=== PATIENT | male | born 1960 | race Two or more races ===

== ENCOUNTER 2020-04-22 11:00 | Inpatient (IN) | payer OTHER ==
[~2020-04-22] VITALS: Ht 182.9 cm; Wt 111.1 kg
[2020-06-23] MEDS ORDERED: ALBUTEROL SULF8.5 G1 INH (15:01)
[2020-06-23] MEDS ORDERED: BREO ELLIPTA 11 EACH IH (15:01)
[2020-06-24] VITALS (23 sets, daily range): BP systolic 118–150; BP diastolic 62–104
[2020-06-24] MEDS ORDERED: OXYCODONE IR15 MG ORAL (06:00)
[2020-06-24] MEDS ORDERED: LR 1000ml 1,000 ML IVLG SCH (06:35)
[2020-06-24] MEDS ORDERED: Thrombin 5000 units TOPIC ONE (06:38)
[2020-06-24] MEDS ORDERED: Gelfoam Size TOPIC ONE (06:38)
[2020-06-24] MEDS ORDERED: Heparin 5000 units/ml inj ONE (06:38)
[2020-06-24] MEDS ORDERED: Bupivacaine w/Epi 0.5% 30ml Vial INJ ONE (06:39)
[2020-06-24] MEDS ORDERED: Bacitracin 50000 Units Vial ONE (06:39)
[2020-06-24] MEDS ORDERED: Lidocaine 1% Plain 30 ml INJ ONE ×3 (06:39→08:30)
[2020-06-24] MEDS ORDERED: Ropivacaine 5mg/ml Vial 20ml INJ ONE (06:39)
--- NOTE | 2020-06-24 06:41 | Anethesia Preoperative Eval ---
Anesthesia Pre-op PMH/ROS General Date of Evaluation: Jun 24, 2020 Time of Evaluation: 07:06 Anesthesiologist: Murphy ASA Score: ASA 3 Mallampati Score Class I : Soft palate, uvula, fauces, pillars visible Class II: Soft palate, uvula, fauces visible Class III: Soft palate, base of uvula visible Class IV: Only hard plate visible Mallampati Classification: Class II Surgeon: Angeles Diagnosis: Back Pain Surgical Procedure: ALIF L5-S1 Anesthesia History: none Family History: no anesthesia problems Allergies: Coded Allergies: No Known Allergies (Unverified , 06/24/20) Medications: see eMAR Patient NPO?: Yes Past Medical History Cardiovascular: Reports: HTN Pulmonary: Reports: asthma, other - Pneumonia Gastrointestinal/Genitourinary: Reports: other - BPH Neurologic/Psychiatric: Reports: depression/anxiety PSxH Narrative: B Hand Sx, IHR, UHR Anesthesia Pre-op Phys. Exam Physician Exam Last Vital Signs Date Time Temp Pulse Resp B/P (MAP) Pulse Ox O2 Delivery O2 Flow Rate FiO2 06/24/20 06:01 Room Air 06/24/20 06:00 98.6 65 20 137/89 (105) 98 Constitutional: NAD Neurologic: CN 2-12 intact Cardiovascular: RRR Respiratory: CTA Gastrointestinal: S/NT/ND Airway Exam Mallampati Score: Class II MO: full ROM: limited Teeth: missing, intact Anesthesia Pre-op A/P Risk Assessment & Plan Assessment: ASA 3 Plan: GA, SED, GlideScope Status Change Before Surgery: No Pre-Antibiotics Dru Grams Ancef IV Given Within 1 Hr of Incision: Yes Time Given: 07:31 Rickie Arrington MD Jun 24, 2020 06:41
--- NOTE | 2020-06-24 06:42 | Immediate Post-Op Evaluation ---
Immediate Post-Op Evalulation Immediate Post-Op Evalulation Procedure: ALIF L5-S1 Date of Evaluation: Jun 24, 2020 Time of Evaluation: 09:47 IV Fluids: 300 LR Blood Products: 0 Estimated Blood Loss: 50 Urinary Output: 0 Blood Pressure Systolic: 122 Blood Pressure Diastolic: 61 Pulse Rate: 52 Respiratory Rate: 18 O2 Sat by Pulse Oximetry: 100 Temperature (Fahrenheit): 97.6 Pain Score (1-10): 2 Nausea: No Vomiting: No Complications 0 Patient Status: awake, reacts, patent, extubated, none Hydration Status: adequate Dru Grams Ancef IV Given Within 1 Hr of Incision: Yes Time Given: 07:31 Rickie Arrington MD Jun 24, 2020 06:42
--- NOTE | 2020-06-24 06:43 | 48 Hour Post Anesthesia Eval ---
Post Anesthesia Evaluation Procedure: ALIF L5-S1 Date of Evaluation: Jun 24, 2020 Time of Evaluation: 12:32 Blood Pressure Systolic: 143 0: 89 Pulse Rate: 62 Respiratory Rate: 18 Temperature (Fahrenheit): 98 O2 Sat by Pulse Oximetry: 100 Airway: patent Nausea: No Vomiting: No Pain Intensity: 2 Hydration Status: adequate Cardiopulmonary Status: Stable Mental Status/LOC: patient returned to baseline Follow-up Care/Observations: 00 Post-Anesthesia Complications: 0 Follow-up care needed: N/A Rickie Arrington MD Jun 24, 2020 06:43
[2020-06-24] MEDS ORDERED: Midazolam 2mg/2ml Inj IVP PRN (06:45)
[2020-06-24] MEDS ORDERED: Acetaminophen (Non formulary) 100 ML IV ONE (06:45)
[2020-06-24] MEDS ORDERED: Ketorolac 30mg Inj IV PRN ×2 (06:45)
[2020-06-24] MEDS ORDERED: oxyCODONE HCL/Acetaminophen 5/325mg ORAL PRN (06:45)
[2020-06-24] MEDS ORDERED: LORazepam Inj 2mg/ml 1ml IV PRN (06:45)
[2020-06-24] MEDS ORDERED: Metoclopramide 10mg/2ml Inj IVP PRN (06:45)
[2020-06-24] MEDS ORDERED: HYDROcodone/Acetamin 7.5/325 tab ORAL PRN (06:45)
[2020-06-24] MEDS ORDERED: Hydromorphone 0.5mg/0.5ml inj IVP PRN ×2 (06:45→12:45)
[2020-06-24] MEDS ORDERED: DiphenhydrAMINE 50mg/ml Inj IVP PRN (06:45)
[2020-06-24] MEDS ORDERED: fentaNYL 100 mcg/2 mL IV PRN (06:45)
[2020-06-24] MEDS ORDERED: Meperidine 25mg/0.5ml Inj (FOR RIGORS ONLY) IV PRN (06:45)
[2020-06-24] MEDS ORDERED: Labetalol 5mg/ml 20ml vial IV PRN (06:45)
[2020-06-24] MEDS ORDERED: HYDROcodone/Acetamin 5/325 tab ORAL PRN (06:45)
[2020-06-24] MEDS ORDERED: Atropine Sulfate 0.4mg/ml inj IVP PRN (06:45)
[2020-06-24] MEDS ORDERED: Rocuronium Bromide 50mg/5ml Inj IV ONE (06:47)
[2020-06-24] MEDS ORDERED: dexAMETHasone 10mg/ml Inj IV ONE (07:00)
[2020-06-24] MEDS ORDERED: Glycopyrrolate 0.2mg/ml 1ml Vial ONE (07:00)
[2020-06-24] MEDS ORDERED: NS Irrig 1000ml ONE (07:00)
[2020-06-24] MEDS ORDERED: Neostigmine 1mg/ml 10ml Inj ONE (07:00)
[2020-06-24] MEDS ORDERED: LR 1000ml ONE (07:00)
[2020-06-24] MEDS ORDERED: ceFAZolin sod 1 GM in NS 55 ML IVPB ONE (07:00)
[2020-06-24] MEDS ORDERED: Sterile Water Irrig 1000ml IRRIG ONE (07:00)
[2020-06-24] MEDS ORDERED: propofoL 1,000mg/100ml IV ONE (07:00)
[2020-06-24] MEDS ORDERED: Sodium Chloride 10ml vial INJ ONE (07:01)
[2020-06-24] MEDS ORDERED: Lidocaine 1% MPF 10mg/ml 5ml ONE (07:01)
[2020-06-24] MEDS ORDERED: fentaNYL 100 mcg/2 mL IV ONE (07:02)
--- NOTE | 2020-06-24 07:23 | Pre-Procedure Note/Attestation ---
Pre-Procedure Note/Attestation Complete Prior to Procedure Planned Procedure: not applicable Procedure Narrative: Alif, anterior internal plate fixation L5-S1 Indications for Procedure Pre-Operative Diagnosis: clinical instability Attestation I attest that I discussed the nature of the procedure; its benefits; risks and complications; and alternatives (and the risks and benefits of such alternatives ), prior to the procedure, with the patient (or the patient's legal warehouse representative). I attest that, if there was a reasonable possibility of needing a blood transfusion, the patient (or the patient's legal warehouse representative) was given the [facility] standardized written summary, pursuant to the [place] Blood Safety Act ([place] Health and Safety Code # 1645, as amended). I attest that I re-evaluated the patient just prior to the surgery and that there has been no change in the patient's H&P, except as documented below: Jesus Reynoso MD Jun 24, 2020 07:23
--- NOTE | 2020-06-24 09:02 | Brief Operative Note ---
Immediate Post Operative Note Operative Note Pre-op Diagnosis: clinical instability Procedure: ALIF L5-S1, plate,ssep, xray Post-op Diagnosis: same as pre-op Findings: consistent w/pre-op dx studies Surgeon: Angeles THAPA Additional Surgeons: Hesham THAPA Anesthesiologist: Murphy THAPA Anesthesia: general Specimen: yes Complications: none Condition: stable Fluids: anesthsia Estimated Blood Loss: minimal Drains: none Implant(s) used?: Yes Jesus Reynoso MD Jun 24, 2020 09:02
[2020-06-24] MEDS ORDERED: Sugammadex Sodium 200mg/2ml vial IV ONE (09:15)
[2020-06-24] MEDS ORDERED: Naloxone 0.4mg/ml Inj IVP PRN (09:15)
[2020-06-24] MEDS: PCA HYDROmorphone 1mg/ml 30 ML IV PRN (10:33)
[2020-06-24] MEDS ORDERED: Rate Change PCA 1 Each MISC PRN (10:45)
--- NOTE | 2020-06-24 11:10 | NUR ---
nurse notes received patient from PACU via bed, s/p ALIF, mid abdominal dressing clean dry and intact, patient awake, alert, oriented x4, O2 at 2 LPM Via NC,no sign of distress, IVF patent and infusing well, on REGISTERED ACCOUNT ADMINISTRATOR howard instructed patient to push button when in pain, Instructed to use IS 10x /hr while awake,v/s taken and recorded , oriented to the unit, plan of care was discussed verbalized understanding [place]
[2020-06-24] MEDS: D5 1/2NS 1,000 ML IV SCH ×2 (12:19→18:22)
[2020-06-24] MEDS: Tamsulosin 0.4mg cap ORAL SCH (12:19)
[2020-06-24] MEDS ORDERED: HYDROmorphone 1mg/ml Carpuject SUBQ PRN (12:30)
--- NOTE | 2020-06-24 13:29 | NUR ---
NURSE NOTES: Patient voided 125 ml yellow urine. No complain of discomfort. Will continue to monitor.
[2020-06-24] MEDS ORDERED: Chloraseptic Spray 20mL Bottle ORAL PRN (13:30)
--- NOTE | 2020-06-24 13:49 | NUR ---
CASE MANAGEMENT: INITIAL REVIEW 06/24/2020 59 YO M PRESENTED TO HOSPITAL CC: BACK PAIN PMHx: ASTHMA. BPH. SI:RADICULOPATHY. Procedure: ALIF L5-S1 T 98.6 HR 65 RR 20 B/P 137/89 SATS 98% ON RA LABS: NO LABS TODAY IS: DEXTROSE/NS @ 150 ML/HR FLOMAX PO QD PROCESS MANUFACTURING ENGINEER PER PARAMETERS CEFAZOLIN IV Q8H PATIENT ADMITTED TO MED/SURG 06/24/2020 @ 0902 DCP: HOME PLAN OF CARE: POST OP CARE PAIN MANAGEMENT AND CONTROL
[2020-06-24] MEDS: Albuterol ud Inhalation HHN SCH ×2 (14:58→19:34)
--- NOTE | 2020-06-24 15:15 | Operative Note - Dictated ---
DATE OF OPERATION: 06/24/2020 VASCULAR SURGEON: Rickie Dahl MD. SPINE SURGEON: Jesus Reynoso MD. PREOPERATIVE DIAGNOSIS: Lumbar pain. POSTOPERATIVE DIAGNOSIS: Lumbar pain. PROCEDURE: Anterior retroperitoneal exposure of L5-S1 vertebral interspace, right retroperitoneal approach. INDICATIONS: The patient is a very pleasant gentleman, who was seen prior to surgery. He has had no prior anterior spine surgery. He has had inguinal hernia repairs in the past. He does not have any history of deep venous thrombosis or bleeding complications. He was made aware of the risks of vascular surgery including vascular injury, possible need for blood transfusion, deep venous thrombosis. DESCRIPTION OF FINDINGS: A low vertical midline incision was used. A right retroperitoneal approach was used. There was no peritoneal or ureteral violation. There was no vascular injury. Exposure L5-S1 was obtained below the bifurcation confirmed using fluoroscopy. On completion, the peritoneum and ureter were intact. Iliac vessel intact. BLOOD LOSS: Less than 100 mL. COMPLICATIONS: None. DESCRIPTION OF PROCEDURE: The patient was taken to the operative room. General anesthesia was used. Antibiotics were given. The patient's abdomen was prepped and draped. Appropriate time-out for procedure was taken. A low vertical midline incision was made infraumbilically. The anterior fascia was incised longitudinally in the midline. A plane was identified posterior to the right rectus abdominis developed posterolaterally to the patient's right. Retroperitoneal space was entered below the arcuate line. The peritoneum and ureter were mobilized towards the patient's left exposing the right common iliac artery and vein. Dissection was carried superiorly around the right iliac vessel until the anterior surface of L5-S1 was palpated. The peritoneum and ureter were swept towards the patient's left exposing the anterior surface of L5-S1. The middle sacral vessels were ligated using vascular clips. The left iliac vein was displaced, was superior to the space of L5-S1 and did not require discrete mobilization. The Omni retractor blade was set in place. Fluoroscopy was used to confirm the appropriate level and then instrumentation performed at L5-S1 dictated separately. On completion, retractor gently removed. The peritoneum and ureter were intact. Iliac vessel intact. Blood loss was less than 100 mL and complications were none. The anterior fascia was then closed with #1 PDS in a running fashion and the skin and subcutaneous tissue were closed with 3-0 Vicryl and 4-0 Monocryl running subcuticular closure technique. DESCRIPTION OF PROCEDURE: The patient was taken to the operative room. General anesthesia was used. Antibiotics were given. The patient's abdomen was prepped and draped. Vertical midline incision was used. Anterior fascia divided in the midline. A plane was developed posterior to the right rectus abdominis and posterolaterally to the patient's right. Retroperitoneal space was entered below the arcuate line. The peritoneum and ureter were mobilized towards the patient's left and dissection was carried medially along the right iliac vessels. The peritoneum and ureters were swept towards the patient's left exposing the anterior surface of L5-S1. The middle sacral vessels were ligated using vascular clips and divided, and the Omni retractor blade was set in place. Fluoroscopy used to confirm the appropriate level and instrumentation performed. On completion, retractor gently removed. Peritoneum and ureter were intact. Iliac vessel intact. Blood loss less than 50 mL. Anterior fascia was closed with #1 PDS in a running fashion and the skin and subcutaneous tissue were closed with 3-0 Vicryl and 4-0 Monocryl in running subcuticular closure technique. Rickie Dahl M.D. DR: ROSAS JOB#: [id number] CC:
--- NOTE | 2020-06-24 16:19 | Diagnostic Imaging Report ---
INDICATION: Pain, intraoperative TECHNIQUE: Intraoperative imaging Fluoroscopy time: 26.3 seconds Total dose: 0.57361 mGym2 Total number of images: 3 COMPARISON: None FINDINGS: Intraoperative images demonstrates surgical tool projected anterior to the L5 vertebral body and at the anterior aspect of the L5-S1 disc IMPRESSION: Intraoperative imaging, as described
--- NOTE | 2020-06-24 16:29 | Operative Note - Dictated ---
DATE OF OPERATION: 06/24/2020 SURGEON: Jesus Reynoso, PhD, MD SOFTWARE PRODUCT SPECIALIST: SHAE Leach ANESTHESIA: General with intubation. ANESTHESIOLOGIST: Rickie Arrington MD ADMITTING/PREOPERATIVE DIAGNOSIS: Post trauma symptomatic lumbar spine clinical instability. OPERATIVE PROCEDURE: 1. Anterior retroperitoneal approach, Dr. Dahl, vascular surgeon, please see separate report with Dr. Reynoso' assist approach right anterior lateral. 2. L5-S1 diskectomy with interbody correction deformity and interbody fusion. 3. Anterior internal plate fixation L5-S1. 4. Not integral interbody device. 5. Placement of interbody titanium device lordotic. 6. Placement of interbody osteopromotive material, autograft. 7. Intraoperative fluoroscopy interpreted by surgeons. 8. SSEP monitoring. ESTIMATED BLOOD LOSS: Less than 50 mL. DRAINS: None. COMPLICATIONS: None. SPECIMEN: Disc fragments L5-S1 to pathology. POSTOPERATIVE CONDITION: Good/stable to the recovery room. DESCRIPTION OF PROCEDURE: The patient was brought to the operating room and in supine position, general anesthesia with intubation was induced. IV antibiotics, IV Decadron administered 30 minutes prior to incision time. The longitudinal anterior incision utilized for exposure, please see separate report. Correct identification of L5-S1 interval was obtained with a spinal needle placed 10 mm into the disk space midline with an AP and cross-table fluoroscopic image obtained under sterile conditions. Confirmed with surgeons. Position marked. Needle removed. Annulotomy was performed followed with diskectomy to the posterior longitudinal ligament. The left anterolateral osteophyte resected under high-power magnification. Endplates denuded of cartilaginous endplates to bleeding subchondral bone. Confirmation undertaken with depth with fluoroscopic imaging and direct observation and high-powered magnification. The trials were utilized to determine the correct dimensions plating interbody device in the AP, medial lateral planes as well as cephalad caudad dimensions and lordosis. 15 degrees of correction lordosis for correction deformity was determined. The implantable device was obtained sterilely packed with osteopromotive material combined with local autograft. Under direct observation/high-power magnification, the device was introduced into the L5-S1 interval and countersunk appropriately. Confirmation was obtained with fluoroscopic guidance. SSEP monitoring remained stable at all times. Introducer was removed. develop compression at the interval. The wound was copiously irrigated with antibiotic-containing saline. Closure was performed after inspection, did not reveal obvious excoriation or laceration of vital structures. Sterile bandage was applied. The patient was awakened, extubated in the operating room, and transported to postop recovery in good stable condition. Jesus Reynoso M.D. DR: LANCE JOB#: [id number] CC:
[2020-06-24] MEDS: ceFAZolin sod 1 GM in D5W 55 ML IV SCH (17:16)
--- NOTE | 2020-06-24 19:10 | NUR ---
NURSE HAND-OFF: Important Events on Shift:[voided 2x during my shift , at 1910 patient called and stated his bladder is full, Dr Coreas made aware ] Patient Status: [on going] Diet: [clear liguid diet tolerated well denies nausea and vomiting] Pending Orders: [bladder scan] Pending Results/Labs:[none] Pending MD notification:[none] Latest Vital Signs: Temperature 98.9 , Pulse 67 , B/P 127 /67 , Respiratory Rate 20 , O2 SAT 95 , Nasal Cannula, O2 Flow Rate 3 . Vital Sign Comment: [] Latest Engle Fall Score: 35 Fall Risk: Medium Risk Safety Measures: Call light , Bed Alarm , Side Rails Side Rails x1, Bed position . Fall Precautions: Report given to [juana KEY].
--- NOTE | 2020-06-24 19:10 | NUR ---
NURSE HAND-OFF: Important Events on Shift:[none] Patient Status: [on going] Diet: [regular diet poor po intake] Pending Orders: [none] Pending Results/Labs:[labs in am] Pending MD notification:[none] Latest Vital Signs: Temperature 98.9 , Pulse 67 , B/P 127 /67 , Respiratory Rate 20 , O2 SAT 95 , Nasal Cannula, O2 Flow Rate 3 . Vital Sign Comment: [] Latest Engle Fall Score: 35 Fall Risk: Medium Risk Safety Measures: Call light , Bed Alarm , Side Rails Side Rails x1, Bed position . Fall Precautions: Report given to [Poli. Addendum: 06/24/20 at 1947 by NIMESH LEVINE RN RN wrong patient
[2020-06-24] MEDS: PCA shift volume MISC SCH (19:22)
--- NOTE | 2020-06-24 19:23 | NUR ---
Patient complained of feeling full and not emptying his bladder completely. Dr. Coreas requested for bladder scan, result is 494 ml, notified Dr Coreas and said he will talk to Dr Guadarrama. Endorsed to primary nurse Poli KEY
--- NOTE | 2020-06-24 19:33 | NUR ---
NURSE NOTES: Received report from Holly RN. Rounding is done. Patient is a/o x4. Denied any pain at this time, but c/o of uncomfortable bladder. No any distress noted at this time. Breathing is even and unlabored. Checked JUDICIAL ADMINISTRATIVE ASSISTANT setting. Surgical dressing on abdomen is c/d/i except small amount of socked redness on dressing during morning shift. IV site is intact and iv fluid is running. Bed is on alarm, locked, and lowest position. Call light within reach. Will continue to monitor.
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
--- NOTE | 2020-06-24 20:18 | Cardiology Progress Note ---
Assessment/Plan Assessment/Plan [id number] i was notified by dr hayward pt post op not giovanna to urinate at about 7;15 i melanie garcia nursign [facility] Objective Last 24 Hour Vital Signs Date Time Temp Pulse Resp B/P (MAP) Pulse Ox O2 Delivery O2 Flow Rate FiO2 06/24/20 19:34 85 18 100 Room Air 21 81 18 98 06/24/20 16:03 67 20 95 06/24/20 16:00 98.9 62 18 127/68 (87) 97 06/24/20 14:55 79 18 98 Room Air 21 06/24/20 14:43 59 18 129/68 (88) 97 06/24/20 13:43 98.2 59 20 132/71 (91) 97 06/24/20 13:08 81 18 98 Room Air 21 79 18 98 06/24/20 12:43 98.0 69 20 136/78 (97) 98 06/24/20 12:15 98.2 67 20 131/78 (95) 98 06/24/20 12:00 67 20 98 06/24/20 12:00 98.2 67 20 132/84 (100) 98 06/24/20 11:45 67 20 98 06/24/20 11:43 98.2 67 20 131/84 (100) 98 06/24/20 11:29 98.2 67 20 130/84 (99) 98 06/24/20 11:15 69 20 98 06/24/20 11:10 98.2 67 20 124/104 (111) 98 06/24/20 11:03 97.3 06/24/20 11:01 15 06/24/20 10:57 98.2 62 18 134/98 (110) 100 06/24/20 10:48 21 06/24/20 10:45 97.3 62 23 139/62 99 Nasal Cannula 3 06/24/20 10:33 16 06/24/20 10:30 54 23 146/81 99 Nasal Cannula 3 06/24/20 10:10 56 20 130/70 99 Nasal Cannula 3 06/24/20 10:00 52 20 127/62 97 Nasal Cannula 3 06/24/20 09:50 54 13 134/72 100 Simple Mask 6 06/24/20 09:40 54 17 128/65 100 Simple Mask 6 06/24/20 09:35 56 14 128/68 100 Simple Mask 6 06/24/20 09:34 62 18 100 06/24/20 09:33 52 18 100 06/24/20 09:30 97.2 51 24 118/65 100 Simple Mask 6 06/24/20 06:01 Room Air 06/24/20 06:00 98.6 65 20 137/89 (105) 98 Intake and Output 06/23/20 06/24/20 19:00 07:00 # Voids 1 Microbiology Date/Time Source Procedure Growth Status 06/22/20 09:55 Nasopharynx SARS-CoV-2 RdRp Gene Assay - Final Complete Yvon Guadarrama MD Jun 24, 2020 20:18
--- NOTE | 2020-06-24 20:35 | NUR ---
NURSE NOTES: Xiong is inserted as ordered and urine output 1200ml with xiong cath, 16 fr. Patient stated that bladder pain is released and comfortable now. Will continue to monitor.
--- NOTE | 2020-06-24 22:10 | NUR ---
NURSE NOTES: Silvia Brenner called that Urine drug screen is positive for Benzo and will follow up.
[2020-06-25] VITALS: BP_SYST 132; BP_SYST 150; BP_DIAS 72; BP_DIAS 84
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
[2020-06-25] MEDS: Albuterol ud Inhalation HHN SCH ×3 (00:39→12:42)
[2020-06-25] MEDS: ceFAZolin sod 1 GM in D5W 55 ML IV SCH ×2 (00:40→09:07)
[2020-06-25] MEDS: D5 1/2NS 1,000 ML IV SCH ×4 (00:41→22:16)
[2020-06-25 04:00] VITALS: BP 118/70
[2020-06-25] MEDS: PCA shift volume MISC SCH ×2 (07:09→20:32)
--- NOTE | 2020-06-25 07:15 | NUR ---
NURSE HAND-OFF: Important Events on Shift:[urine output] Patient Status: [stable] Diet: [clear liquid] Pending Orders: [n/a] Pending Results/Labs:[n/a] Pending MD notification:[n/a] Latest Vital Signs: Temperature 97.9 , Pulse 60 , B/P 118 /70 , Respiratory Rate 18 , O2 SAT 96 , Room Air, O2 Flow Rate 3 . Vital Sign Comment: [stable] Latest Engle Fall Score: 40 Fall Risk: Medium Risk Safety Measures: Call light Within Reach, Bed Alarm Zone 2, Side Rails Side Rails x2, Bed position Low and Locked. Fall Precautions: Yellow Socks Door Sign Report given to [Unpingco RN].
--- NOTE | 2020-06-25 07:20 | NUR ---
NURSE NOTES: Handoff received from Poli KEY. Patient is awake and alert, no signs of distress noted. No reports of pain at this time. Vazquez catheter is patent and draining to gravity. IV is intact and asymptomatic, running IVF as ordered. Dressings are clean dry and intact. Bed is low and locked, side rails up x2, call light is within reach.
[2020-06-25 08:00] VITALS: BP 126/68
--- NOTE | 2020-06-25 08:09 | Pain Management Progress Note ---
Allergies: Coded Allergies: No Known Allergies (Unverified , 06/24/20) Vitals Vital Signs Date Time Temp Pulse Resp B/P (MAP) Pulse Ox O2 Delivery O2 Flow Rate FiO2 06/25/20 04:00 97.9 60 18 118/70 (86) 96 06/25/20 04:00 60 18 96 06/25/20 00:00 64 18 96 06/25/20 00:00 98.0 64 18 132/72 (92) 96 Medications Current Medications Acetaminophen (Tylenol) 650 mg Q6H PRN ORAL Mild Pain (Pain Scale 1-3)/FEV; Start 06/24/20 at 12:30; Stop 07/24/20 at 12:29 Acetaminophen/ Butalbital/ Caffeine (Fioricet) 1 tab Q8H PRN ORAL headache; Start 06/24/20 at 12:30; Stop 07/24/20 at 12:29 Al Hydroxide/Mg Hydroxide (Mylanta) 30 ml Q6H PRN ORAL gerd; Start 06/24/20 at 12:30; Stop 07/24/20 at 12:29 Albuterol Sulfate (Proventil) 2.5 mg Q6HRT HHN Last administered on 06/24/20at 19:34; Start 06/24/20 at 13:00; Stop 06/29/20 at 12:59 Bethanechol Chloride (Urecholine) 25 mg THREE TIMES A DAY ORAL ; Start at 09:00; Stop 07/25/20 at 08:59; Status UNV Carisoprodol (Soma) 350 mg Q8HR PRN ORAL SPASM; Start 06/24/20 at 12:30; Stop 07/24/20 at 12:29 Cefazolin Sodium 1 gm/Dextrose 55 ml @ 110 mls/hr Q8H IV Last administered on 06/25/20at 00:40; Start 06/24/20 at 17:30; Stop 06/25/20 at 09:59 Clonidine HCl (Catapres Tab) 0.1 mg Q8H PRN ORAL prn SBP > 160mmHg; Start 06/24 at 12:30; Stop 09/22/20 at 12:29 Dextrose/Sodium Chloride 1,000 ml @ 150 mls/hr Q6H40M IV Last administered on 06/25/20at 00:41; Start 06/24/20 at 12:15; Stop 07/24/20 at 12:14 Diphenhydramine HCl (Benadryl) 25 mg Q6H PRN ORAL Itching; Start 06/24/20 at 12 :30; Stop 07/24/20 at 12:29 Famotidine (Pepcid) 20 mg BID ORAL Last administered on 06/24/20at 17:16; Start 06/24/20 at 18:00; Stop 09/22/20 at 17:59 Hydromorphone HCl 30 ml @ 0 mls/hr REHAB SPEC protocol PRN IV For Pain Last administered on 06/24/20at 10:33; Start 06/24/20 at 10:30; Stop 06/26/20 at 10:29 Hydromorphone HCl (Dilaudid) 0.2 mg Q10M PRN IVP refer to manager procurement bolus dos orders ; Start 06/24/20 at 12:45; Stop 07/01/20 at 12:44 Hydromorphone HCl (Dilaudid) 1 mg 0754 ONCE SUBQ ; Start 06/25/20 at 07:54; Stop 06/25/20 at 07:55; Status UNV Hydromorphone HCl (Dilaudid) 1 mg Q3H PRN SUBQ Severe Breakthru Pain (>7); Start 06/25/20 at 09:30; Stop 07/02/20 at 09:29; Status UNV Miscellaneous Medication (REHAB SPEC Rate Change) 1 ea DAILY PRN MISC REHAB SPEC RATE CHANGE ; Start 06/24/20 at 10:45; Stop 06/26/20 at 10:44 Miscellaneous Medication (REHAB SPEC shift volume) 1 ea Q12HR@0700,1900 MISC Last administered on 06/25/20at 07:09; Start 06/24/20 at 19:00; Stop 06/26/20 at 18:59 Naloxone HCl (Narcan) 0.1 mg PRN PRN IVP RR<12/min, pt unarousable; Start 06/24 at 09:15; Stop 09/22/20 at 09:14 Ondansetron HCl (Zofran) 4 mg Q4H PRN IVP Nausea & Vomiting; Start 06/24/20 at 12:30; Stop 07/24/20 at 12:29 Oxycodone HCl (Roxicodone) 15 mg Q3H PRN ORAL Moderate Breakthru Pain (5-7); Start 06/24/20 at 12:30; Stop 07/01/20 at 12:29 Phenol/Menthol (Chloraseptic) 1 spray Q2H PRN ORAL sore throat; Start 06/24/20 at 13:30; Stop 09/22/20 at 13:29 Tamsulosin HCl (Flomax) 0.4 mg DAILY ORAL Last administered on 06/24/20at 12:19 ; Start 06/24/20 at 13:00; Stop 07/24/20 at 12:59 Laboratory Laboratory Tests 06/24/20 20:20: Urine Opiates Screen Negative, Urine Barbiturates Screen Negative, Phencyclidine (PCP) Screen Negative, Urine Amphetamines Screen Negative, Urine Benzodiazepines Screen PositiveH, Urine Cocaine Screen Negative, Urine Marijuana (THC) Screen Negative Plan: I spent over sixty minutes in consultation today, including extensive face-to- face time at the pt's bedside this morning. D/w orthotist prosthetist Mary. Discussed with Drs. Reynoso & Chiara last night. Urinary retention last night ~490cc via bladder scan. Vazquez catheter placed with ease by RN, despite h/o BPH. Daily flomax & TID urecholine started. Continue Vazquez until further instructions from Drs. Reynoso & Chiara. Pain level 7 / 10 on the visual-analog pain scale. MAR medication list reviewed. Continue REHAB SPEC as ordered. Will also titrate-in prn sq dilaudid, as it is essential that patient is able to ambulate out of bed with PT later this morning. Clear liquid diet tolerated without emesis. Continue clears until flatus. Pt has chronic constipation; hard stools. Last BM . Pt ate CP[employer] pizza night. In light of chronic hard stools, will start colace 100 mg po BID as a stool softener; but will not start laxatives at this time after ALIF. GI: +BS; No flatus; No BM Dr. Reynoso might consider adding-in po magnesium citrate AFTER flatus. Encourage incentive spirometer usage. Encourage advancing ambulation with physical therapy as tolerated. SCDs for mechanical prophylaxis against deep venous thrombosis and PEs. Discussed discharge planning with patient to help expedite hospital discharge. Pt must have BM prior to discharge. Pt lives alone. Pt has adjustable bed at home. Patient has a few oxy-IR 15mg pain meds at home already, given from surgeon pre- operatively one month ago. Rx for oxycodone-IR 15 mg #60 hand-delivered by me to patient for outpatient pain medication usage; pt will try to arrange for [place] pharmacy to deliver pills to [facility]. Tyler Coreas MD Jun 25, 2020 08:09
[2020-06-25] MEDS ORDERED: HYDROmorphone 1mg/ml Carpuject SUBQ SCH (08:22)
[2020-06-25] MEDS: Tamsulosin 0.4mg cap ORAL SCH (09:07)
[2020-06-25] MEDS: Bethanechol 25mg Tab ORAL SCH ×3 (09:07→17:06)
[2020-06-25] MEDS: Docusate 100mg cap ORAL SCH ×2 (09:07→17:06)
[2020-06-25 12:00] VITALS: BP 128/72
[2020-06-25 16:00] VITALS: BP 129/75
[2020-06-25] MEDS: PCA HYDROmorphone 1mg/ml 30 ML IV PRN (16:05)
--- NOTE | 2020-06-25 16:11 | NUR ---
CASE MANAGEMENT: REVIEW 06/25/2020 SI:RADICULOPATHY. Procedure: ALIF L5-S1 98.2 55 21 126/68 100% ON RA NO LABS TODAY IS: DEXTROSE/NS @ 150 ML/HR FLOMAX PO QD ORTHOPEDIC SPECIALIST PER PARAMETERS CEFAZOLIN IV Q8H URECHOLINE PO TID \: 3E MED SURG UNIT DCP: HOME PLAN OF CARE: DC IV ABX WHEN COMPLETE
--- NOTE | 2020-06-25 16:56 | NUR ---
PT Note PT anabela completed, treatment initiated. Patient was instructed on HEP's, proper log rolling techniques and proper body mechanics. Patient needs PT to further instruct on above for safe and independent mobility and gait to enable him to return to PL and home situation. Addendum: 06/25/20 at 1657 by CHASE BERG PT Amended: Links added.
--- NOTE | 2020-06-25 17:37 | Cardiology Progress Note ---
Assessment/Plan Problem List: (1) Obstructive uropathy (2) Pain (3) Fusion of spine of lumbar region Status: stable, progressing Status Narrative s/p lumbar surgery pod #1 Hemodynamically stable. Pain controlled w/ PRIMARY EDUCATION PROFESSOR dilaudid Urinary retention - xiong placed Assessment/Plan Continue PT, pain management. Xiong catheter and flomax. ? urology evaluation if remains unable to void Subjective ROS Limited/Unobtainable: No Subjective Cardiology for Dr. Guadarrama Mr Gonick c/o back pain, on PRIMARY EDUCATION PROFESSOR pump Objective Last 24 Hour Vital Signs Date Time Temp Pulse Resp B/P (MAP) Pulse Ox O2 Delivery O2 Flow Rate FiO2 06/25/20 16:35 98.3 06/25/20 16:00 97.7 59 18 129/75 (93) 99 06/25/20 16:00 99 06/25/20 12:00 98.3 60 19 128/72 (90) 97 06/25/20 12:00 97 06/25/20 09:37 98.2 06/25/20 09:00 Room Air 06/25/20 08:00 100 06/25/20 08:00 98.2 55 21 126/68 (87) 100 06/25/20 07:59 75 18 100 Room Air 21 78 16 97 06/25/20 04:00 97.9 60 18 118/70 (86) 96 06/25/20 04:00 60 18 96 06/25/20 00:00 64 18 96 06/25/20 00:00 98.0 64 18 132/72 (92) 96 06/24/20 21:00 Room Air 06/24/20 20:00 97.3 87 18 150/84 (106) 98 06/24/20 20:00 87 18 98 06/24/20 19:34 85 18 100 Room Air 21 81 18 98 General Appearance: WD/WN, no apparent distress, alert EENT: PERRL/EOMI Neck: non-tender, supple, no JVD Rhythm: NSR Cardiovascular: normal rate, regular rhythm, no gallop/murmur Respiratory/Chest: lungs clear, other - clear anteriorly Abdomen: non tender, soft Intake and Output 06/24/20 06/25/20 19:00 07:00 Intake Total 2130 ml 3105 ml Output Total 622 ml 3200 ml Balance 1508 ml -95 ml Intake Oral 800 ml 1400 ml IV Total 1330 ml 1705 ml Output Urine Total 572 ml 3200 ml Estimated Blood Loss 50 ml # Voids 2 Laboratory Tests Test 06/24/20 20:20 Urine Opiates Screen Negative (NEGATIVE) Urine Barbiturates Screen Negative (NEGATIVE) Phencyclidine (PCP) Screen Negative (NEGATIVE) Urine Amphetamines Screen Negative (NEGATIVE) Urine Benzodiazepines Screen Positive (NEGATIVE) H Urine Cocaine Screen Negative (NEGATIVE) Urine Marijuana (THC) Screen Negative (NEGATIVE) Janet Marquez MD Jun 25, 2020 17:37
--- NOTE | 2020-06-25 19:17 | NUR ---
NURSE HAND-OFF: Important Events on Shift:[] Patient Status: stable Diet: Clear liq Pending Orders: [] Pending Results/Labs: Pending MD notification: Latest Vital Signs: Temperature 98.3 , Pulse 59 , B/P 129 /75 , Respiratory Rate 18 , O2 SAT 99 , Room Air, O2 Flow Rate 3 . Vital Sign Comment: Latest Engle Fall Score: 40 Fall Risk: Medium Risk Safety Measures: Call light Within Reach, Bed Alarm Zone 2, Side Rails Side Rails x2, Bed position Low and Locked. Fall Precautions: Yellow Socks Door Sign Report given to Doreen RN.
--- NOTE | 2020-06-25 19:20 | NUR ---
NURSE NOTES: RECEIVED PATIENT FROM YESI WILSON. PATIENT IS AWAKE, AAOX4, RESTING IN BED, ON ROOM AIR, NO ACUTE DISTRESS NOTED. VSS. SURGICAL DRESSINGS ON LOWER ABDOMEN INTACT AND DRY, PLACED ICE BAGS OVER SITE FOR PAIN RELIEVER. PIV ON RIGHT HAND INTACT AND PATENT RUNNING D5 1/2 NS AT 150 ML/HR. PATIENT HAS A IMPLEMENTATION SPECIALIST PAYROLL, PRN 0.2MG DILAUDID [id number], 4MG MAX Q4 HOURS. 23.8MG REMAINING IN TUBING. 3.2 MG .WAS GIVEN PER LAST 4 HOURS. IMPLEMENTATION SPECIALIST PAYROLL SHIFT REVIEWED SIGNED WITH CHARGE NURSE LAURA. PATIENT HAS A [place] CATH, PATENT AND DRAINING WELL. YELLOW URINE NOTED. I/S AT BEDSIDE, ENCOURAGED USAGE, PATIENT VERBALIZED UNDERSTANDING. BED IS LOCKED AND LOW, BED ALARMS ACTIVE, SIDE RAILS UPX2 AND CALL LIGHT IS WITHIN REACH. WILL CONTINUE TO MONITOR.
[2020-06-25 20:00] VITALS: BP 130/75
--- NOTE | 2020-06-25 23:00 | NUR ---
NURSE NOTES: AMBULATED WITH PATIENT AROUND UNIT. PATIENT STATED THAT AMBULATING IS HELPING HIM PASS GAS AND RELIEVED DISCOMFORT IN LOWER ABDOMEN. WILL CONTINUE TO MONITOR PATIENT CLOSELY.
[2020-06-26] VITALS: BP 123/74
[2020-06-26 04:00] VITALS: BP_SYST 123; BP_SYST 130; BP_DIAS 74
[2020-06-26] MEDS: D5 1/2NS 1,000 ML IV SCH (04:15)
[2020-06-26] MEDS: PCA shift volume MISC SCH (07:27)
--- NOTE | 2020-06-26 07:30 | NUR ---
NURSE NOTES: Handoff received from Doreen RN. Patient is awake and alert, no signs of distress noted, Breathing is even and unlabored on room air. Patient's IV is patent and asymptomatic, running IVF as ordered. Vazquez catheter is patent and draining to gravity. LEGAL SERVICE SPECIALIST settings verified against order. Bed is low and locked, side rails up x2, call light is within reach.
--- NOTE | 2020-06-26 07:43 | NUR ---
NURSE HAND-OFF: Important Events on Shift: Patient was able to ambulate around unit twice, c/o abdomen cramping, unable to pass gas. Notified Dr. Coreas to renew EMERGENCY DEPARTMENT AIDE orders. Patient Status: Stable Diet: Clear Liquid Pending Orders: N/A Pending Results/Labs: N/A Pending MD notification: Notified Dr. Coreas to renew EMERGENCY DEPARTMENT AIDE orders. Latest Vital Signs: Temperature 99.7 , Pulse 69 , B/P 130 /74 , Respiratory Rate 17 , O2 SAT 97 , Room Air, O2 Flow Rate 3 . Vital Sign Comment: Stable Latest Engle Fall Score: 40 Fall Risk: Medium Risk Safety Measures: Call light Within Reach, Bed Alarm Zone 2, Side Rails Side Rails x2, Bed position Low and Locked. Fall Precautions: Yellow Socks Door Sign Report given to YESI Leary.
[2020-06-26 08:00] VITALS: BP 121/79
--- NOTE | 2020-06-26 08:05 | Pain Management Progress Note ---
Allergies: Coded Allergies: No Known Allergies (Unverified , 06/24/20) Vitals Vital Signs Date Time Temp Pulse Resp B/P (MAP) Pulse Ox O2 Delivery O2 Flow Rate FiO2 06/26/20 04:00 69 17 97 06/26/20 04:00 99.7 69 17 130/74 (92) 97 06/26/20 00:00 61 16 97 Medications Current Medications Acetaminophen (Tylenol) 650 mg Q6H PRN ORAL Mild Pain (Pain Scale 1-3)/FEV Last administered on 06/26/20at 06:25; Start 06/24/20 at 12:30; Stop 07/24/20 at 12:29 Acetaminophen/ Butalbital/ Caffeine (Fioricet) 1 tab Q8H PRN ORAL headache; Start 06/24/20 at 12:30; Stop 07/24/20 at 12:29 Al Hydroxide/Mg Hydroxide (Mylanta) 30 ml Q6H PRN ORAL gerd Last administered on 06/26/20at 06:24; Start 06/24/20 at 12:30; Stop 07/24/20 at 12:29 Albuterol Sulfate (Proventil) 2.5 mg Q6HRT HHN Last administered on 06/25/20at 07:59; Start 06/24/20 at 13:00; Stop 06/29/20 at 12:59 Bethanechol Chloride (Urecholine) 25 mg THREE TIMES A DAY ORAL Last administered on 06/25/20at 17:06; Start 06/25/20 at 09:00; Stop 07/25/20 at 08:59 Carisoprodol (Soma) 350 mg Q8HR PRN ORAL SPASM; Start 06/24/20 at 12:30; Stop 07/24/20 at 12:29 Clonidine HCl (Catapres Tab) 0.1 mg Q8H PRN ORAL prn SBP > 160mmHg; Start 06/24 at 12:30; Stop 09/22/20 at 12:29 Diphenhydramine HCl (Benadryl) 25 mg Q6H PRN ORAL Itching; Start 06/24/20 at 12 :30; Stop 07/24/20 at 12:29 Docusate Sodium (Colace) 100 mg TWICE A DAY ORAL Last administered on at 17:06; Start 06/25/20 at 09:00; Stop 07/25/20 at 08:59 Famotidine (Pepcid) 20 mg BID ORAL Last administered on 06/25/20at 17:06; Start 06/24/20 at 18:00; Stop 09/22/20 at 17:59 Hydromorphone HCl (Dilaudid) 1 mg Q3H PRN SUBQ Severe Breakthru Pain (>7); Start 06/25/20 at 09:30; Stop 07/02/20 at 09:29 Ondansetron HCl (Zofran) 4 mg Q4H PRN IVP Nausea & Vomiting; Start 06/24/20 at 12:30; Stop 07/24/20 at 12:29 Oxycodone HCl (Roxicodone) 15 mg Q3H PRN ORAL Moderate Breakthru Pain (5-7); Start 06/24/20 at 12:30; Stop 07/01/20 at 12:29 Tamsulosin HCl (Flomax) 0.4 mg DAILY ORAL Last administered on 06/25/20at 09:07 ; Start 06/24/20 at 13:00; Stop 07/24/20 at 12:59 Plan: I spent over sixty minutes in consultation today. D/w orthodontist vice president Lloyd & Dr Reynoso. Pt "requested" to trial off Xiong catheter this Saturday morning. Already on daily flomax & TID urecholine in-place. Will trial d/c xiong now, early in the AM, to allow full-day trial with ambulation to see if adequate urinary voiding. h/o BPH and urinary retention [bladder scan volume ~500cc cc Saturday evening before Xiong placed]. Dr Guadarrama may order urology consult if repeat urinary-retention issues later today. Pain level 6 / 10 on the visual-analog pain scale. MAR medication list reviewed. Will trial-off STOCK PATCHER. Titrate-in prn sq dilaudid, & po oxycodone-IR 15mg prn. Clear liquid diet tolerated without emesis. + flatus. Trial full liquids. Pt needs caffeine/coffee to avoid morning headaches; RN to provide. GI: +BS; + flatus; No BM. Pt has chronic constipation; hard stools. Last BM . In light of chronic hard stools, I started colace 100 mg po BID as a stool softener; but will defer starting laxatives after ALIF to Dr Reynoso. Dr. Reynoso might consider adding-in po magnesium citrate. Continue incentive spirometer usage; pt compliant & denies wheezing or SOB, with long history of asthma. PRN albuterol nebulizers remain available. Continue advancing ambulation with physical therapy as tolerated, including stairs training. Already ambulated ~ 400 feet. Pt doesn't require FWW. SCDs for mechanical prophylaxis against deep venous thrombosis and PEs. Discussed discharge planning with patient to help expedite hospital discharge. Must have + BM first per srgn. Patient has a few oxy-IR 15mg pain meds at home already, given from surgeon pre- operatively one month ago. Rx for oxycodone-IR 15 mg #60 hand-delivered by me to patient for outpatient pain medication usage; pt will try to arrange for [facility] pharmacy to deliver pills to his home on Saturday/Saturday, as pharmacy is closed on weekends. Pt lives alone. Pt has adjustable bed at home. Pt must have BM prior to discharge. Tyler Coreas MD Jun 26, 2020 08:05
[2020-06-26] MEDS: Docusate 100mg cap ORAL SCH ×2 (08:55→18:36)
[2020-06-26] MEDS: Tamsulosin 0.4mg cap ORAL SCH (08:55)
[2020-06-26] MEDS: Bethanechol 25mg Tab ORAL SCH ×3 (08:55→18:36)
[2020-06-26] MEDS: oxyCODONE 15mg IR tab ORAL PRN ×2 (11:27→17:04)
[2020-06-26] MEDS ORDERED: Albuterol ud Inhalation HHN PRN (11:56)
[2020-06-26 12:00] VITALS: BP 141/72
[2020-06-26] MEDS: HYDROmorphone 1mg/ml Carpuject SUBQ PRN (13:07)
--- NOTE | 2020-06-26 14:31 | NUR ---
CASE MANAGEMENT: REVIEW 06/26/2020 SI:RADICULOPATHY. Procedure: ALIF L5-S1 99.7 69 17 130/74 97% ON RA NO LABS TODAY IS: DILAUDID SQ Q3HR/PRN URECHOLINE PO TID FLOMAX OI QD TYLENOL PO Q6HR/PRN \: 3E MED SURG UNIT DCP: HOME START ON FULL LIQ DIET ADVANCE TOLERATED DC WE[place]ON CATH
[2020-06-26 16:00] VITALS: BP 144/86
--- NOTE | 2020-06-26 16:04 | Cardiology Progress Note ---
Assessment/Plan Problem List: (1) Obstructive uropathy (2) Pain (3) Fusion of spine of lumbar region Status: doing well, stable Status Narrative s/p lumbar surgery pod #2 Hemodynamically stable. Pain controlled w/ oxycodone and prn dilaudid Urinary retention post op Assessment/Plan Continue PT, pain management w/ oral meds Vazquez catheter dcd and pt able to void. check residuals and continue flomax Subjective ROS Limited/Unobtainable: No Subjective Cardiology for Dr. Guadarrama Mr Lira has less back pain. WAGE ANALYST removed. Vazquez removed Objective Last 24 Hour Vital Signs Date Time Temp Pulse Resp B/P (MAP) Pulse Ox O2 Delivery O2 Flow Rate FiO2 06/26/20 12:00 99.0 79 19 141/72 (95) 96 06/26/20 08:00 99.3 78 20 121/79 (93) 98 06/26/20 04:00 69 17 97 06/26/20 04:00 99.7 69 17 130/74 (92) 97 06/26/20 00:00 61 16 97 06/25/20 21:00 Room Air 06/25/20 20:00 98.9 59 17 130/75 (93) 99 06/25/20 20:00 59 17 99 06/25/20 16:35 98.3 General Appearance: WD/WN, no apparent distress, alert EENT: PERRL/EOMI Neck: non-tender, normal inspection Rhythm: NSR Cardiovascular: normal rate, regular rhythm, no gallop/murmur Respiratory/Chest: lungs clear, other - clear anteriorly Abdomen: non tender, soft Extremities: non-tender, no swelling Intake and Output 06/25/20 06/26/20 19:00 07:00 Intake Total 1350 ml 1800 ml Output Total 3300 ml 2000 ml Balance -1950 ml -200 ml Intake Oral 1200 ml IV Total 150 ml 1800 ml Output Urine Total 3300 ml 2000 ml Microbiology Date/Time Source Procedure Growth Status 06/24/20 06:30 Nasal Nares MRSA Culture - Final NO METHICILLIN RESISTANT STAPH AUREUS... Complete Janet Marquez MD Jun 26, 2020 16:04
--- NOTE | 2020-06-26 18:00 | NUR ---
NURSE NOTES: Doctor Coreas called and I told him about the patient's [address] Coreas recommended the patient to use the IS more frequently. MD also ordered regular diet for breakfast.
--- NOTE | 2020-06-26 19:30 | NUR ---
NURSE HAND-OFF: Important Events on Shift:[DC xiong and COMMUNITY PROGRAM ASSISTANT] Patient Status: stable Diet: full liquid Pending Orders: Pending Results/Labs: Pending MD notification: Latest Vital Signs: Temperature 99.7 , Pulse 73 , B/P 144 /86 , Respiratory Rate 18 , O2 SAT 95 , Room Air, O2 Flow Rate 3 . Vital Sign Comment: given tylenol for 100 temp at 1700 Latest Engle Fall Score: 40 Fall Risk: Medium Risk Safety Measures: Call light Within Reach, Bed Alarm Zone 2, Side Rails Side Rails x2, Bed position Low and Locked. Fall Precautions: Yellow Socks Door Sign Report given to Marc KEY .
--- NOTE | 2020-06-26 19:39 | NUR ---
NURSE NOTES: Patient in bed, awake, alert and verbally responsive. Able to make needs known. Respiration is even and unlabroed. IS at bedside, encouraged. No complaint of pain or discomfort noted at this time. Iv site noted. Skin is warm and dry to touch. Abdomen is soft, noted with dressing, intact, no s/s of infection. Bed in low and locked position. Provided safe environment. Kept clean and comfortable. Call light is at bedside. will continue plan of care.
[2020-06-26 20:00] VITALS: BP 123/77
[2020-06-27] MEDS: HYDROmorphone 1mg/ml Carpuject SUBQ PRN (01:45)
--- NOTE | 2020-06-27 02:00 | NUR ---
NURSE NOTES: Patient complaining of abdominal pain, given PRn pain medication as ordered. Will reassess. call light is at bedside. Will continue plan of care.
[2020-06-27] MEDS: oxyCODONE 15mg IR tab ORAL PRN ×3 (03:52→13:42)
[2020-06-27 04:00] VITALS: BP 109/73
[2020-06-27] MEDS ORDERED: HYDROmorphone 1mg/ml Carpuject IVP PRN (04:30)
--- NOTE | 2020-06-27 04:30 | Pain Management Progress Note ---
Allergies: Coded Allergies: No Known Allergies (Unverified , 06/24/20) Vitals Vital Signs Date Time Temp Pulse Resp B/P (MAP) Pulse Ox O2 Delivery O2 Flow Rate FiO2 06/27/20 04:00 99.7 71 16 109/73 (85) 97 06/26/20 20:28 Room Air Medications Current Medications Acetaminophen (Tylenol) 650 mg Q6H PRN ORAL Mild Pain (Pain Scale 1-3)/FEV Last administered on 06/26/20at 16:58; Start 06/24/20 at 12:30; Stop 07/24/20 at 12:29 Acetaminophen/ Butalbital/ Caffeine (Fioricet) 1 tab Q8H PRN ORAL headache; Start 06/24/20 at 12:30; Stop 07/24/20 at 12:29 Al Hydroxide/Mg Hydroxide (Mylanta) 30 ml Q6H PRN ORAL gerd Last administered on 06/26/20at 06:24; Start 06/24/20 at 12:30; Stop 07/24/20 at 12:29 Albuterol Sulfate (Proventil) 2.5 mg Q6H PRN HHN Shortness of Breath; Start at 11:56; Stop 07/01/20 at 11:55 Bethanechol Chloride (Urecholine) 25 mg THREE TIMES A DAY ORAL Last administered on 06/26/20at 18:36; Start 06/25/20 at 09:00; Stop 07/25/20 at 08:59 Clonidine HCl (Catapres Tab) 0.1 mg Q8H PRN ORAL prn SBP > 160mmHg; Start 06/24 at 12:30; Stop 09/22/20 at 12:29 Diphenhydramine HCl (Benadryl) 25 mg Q6H PRN ORAL Itching; Start 06/24/20 at 12 :30; Stop 07/24/20 at 12:29 Docusate Sodium (Colace) 100 mg TWICE A DAY ORAL Last administered on at 18:36; Start 06/25/20 at 09:00; Stop 07/25/20 at 08:59 Famotidine (Pepcid) 20 mg BID ORAL Last administered on 06/26/20at 18:36; Start 06/24/20 at 18:00; Stop 09/22/20 at 17:59 Hydromorphone HCl (Dilaudid) 0.5 mg Q8H PRN IVP Severe Breakthru Pain (>7); Start 06/27/20 at 04:30; Stop 07/04/20 at 04:29; Status UNV Ondansetron HCl (Zofran) 4 mg Q4H PRN IVP Nausea & Vomiting; Start 06/24/20 at 12:30; Stop 07/24/20 at 12:29 Oxycodone HCl (Roxicodone) 15 mg Q3H PRN ORAL Moderate Breakthru Pain (5-7) Last administered on 06/27/20at 03:52; Start 06/24/20 at 12:30; Stop 07/01/20 at 12:29 Tamsulosin HCl (Flomax) 0.4 mg DAILY ORAL Last administered on 06/26/20at 08:55 ; Start 06/24/20 at 13:00; Stop 07/24/20 at 12:59 Plan: I spent over sixty minutes in consultation today. D/w orthodontic technician Kevin & auditor in charge Yulia. Good urine output after Vazquez d/c'd 24 hours ago. Pt feels that urinary flows feels adequate, and admits to preop 'dribbling' problems. Will continue daily flomax & TID urecholine while in-hospital, but should not need these meds at time of discharge from [facility]. Pt instructed to follow up with his own outpt PTP regarding prostate issues. Pt also has been using bedside urinal, rather than getting out of bed to void urine. I instructed patient and RN to throw-away urinal, in order to force getting out of bed to restroom. Pt feels like he is very stable on his feet and with walking. Already ambulates > 500 feet frequently. Pt doesn't require FWW. Patient also believes his preop back pain and sciatica & markedly improved after surgery. Still with abdominal / incisional pain. Pain level 5 / 10 on the visual- analog pain scale. MAR medication list reviewed. 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 At this time, will wean-off sq dilaudid, & target using nearly exclusively po oxycodone-IR 15mg prn for analgesia. Will still make available rescue q8H IV dilaudid 0.5mg dose prn. Full liquid diet tolerated without emesis. + flatus. Trial regular diet with upcoming breakfast. Pt excited for solid food. Pt denies morning headaches so far. Continue incentive spirometer usage; no asthma problems so far. GI: +BS; + flatus; No BM. Pt has chronic constipation & hard stools. Last BM . In light of chronic hard stools, I started colace 100 mg po BID as a stool softener. At this time, will also start po magnesium citrate 150cc q8 until BM. Patient has a few oxy-IR 15mg pain meds at home already, given from surgeon pre- operatively one month ago. Rx for oxycodone-IR 15 mg #60 given to patient for outpatient pain medication usage; pt will contact [facility] to deliver pills to his home on Saturday/ Saturday, as pharmacy will reopen this Saturday am. Otherwise, pt will obtain from his 'regular' local [facility]. Pt lives alone. Pt has adjustable bed at home. Pt will discharge home via Uber after BM. Tyler Coreas MD Jun 27, 2020 04:30
[2020-06-27] MEDS ORDERED: Magnesium Citrate Liq Btl ORAL ONE (05:00)
--- NOTE | 2020-06-27 07:12 | NUR ---
NURSE HAND-OFF: Important Events on Shift: Dr. Coreas saw patient, new orders. Patient Status: Diet: Pending Orders: Pending Results/Labs: Pending MD notification: Latest Vital Signs: Temperature 99.7 , Pulse 71 , B/P 109 /73 , Respiratory Rate 16 , O2 SAT 97 , Room Air, O2 Flow Rate 3 . Vital Sign Comment: Latest Engle Fall Score: 40 Fall Risk: Medium Risk Safety Measures: Call light Within Reach, Bed Alarm Zone 2, Side Rails Side Rails x2, Bed position Low and Locked. Fall Precautions: Yellow Socks Door Sign Report given to Alex Chaney.
--- NOTE | 2020-06-27 07:45 | NUR ---
NURSE NOTES: Received report from Marc KEY. Patient is awake and oriented, in no apparent distress, reporting abdominal cramping/discomfort s/p mag citrate administration. Patient reports he is passing flatus. IV intact, locked. Patient updated on plan of care for the day. Patient educated to call for assistance when getting OOB and verbalized understanding. Fall precautions maintained. Side rails upx3, bed low and locked, call light within reach.
[2020-06-27 08:00] VITALS: BP 127/77
[2020-06-27] MEDS: Docusate 100mg cap ORAL SCH ×2 (08:51→18:00)
[2020-06-27] MEDS: Tamsulosin 0.4mg cap ORAL SCH (08:51)
[2020-06-27] MEDS: Bethanechol 25mg Tab ORAL SCH ×3 (08:51→18:00)
--- NOTE | 2020-06-27 10:22 | NUR ---
NURSE NOTES: Received call from Dr. Coreas. Received order to d/c patient home after patient has BM, home medications reviewed with MD and MD ordered to continue all home medications on d/c. All orders read back and entered.
--- NOTE | 2020-06-27 10:35 | NUR ---
NURSE NOTES: Received order from Dr. Coreas to change Mag Citrate order from 150mL to 300mL, order read back and entered. Per MD, d/c after patient has BM.
[2020-06-27 12:00] VITALS: BP 126/67
--- NOTE | 2020-06-27 12:53 | NUR ---
NURSE NOTES: Patient had normal BM. Discontinued mag citrate per order.
[2020-06-27] MEDS ORDERED: Magnesium Citrate Liq Btl ORAL SCH ×2 (13:00)
--- NOTE | 2020-06-27 18:57 | NUR ---
NURSE NOTES: Patient discharged in no apparent distress. Patient provided with discharge education, discharge education reviewed with patient and patient verbalized understanding of instructions. Patient educated not to drive until cleared by Dr. Reynoso. IV removed intact. All belongings sent with patient. Patient provided with raised toilet seat for home use. Patient escorted to private vehicle via wheelchair.
--- NOTE | 2020-06-28 13:04 | Discharge Summary ---
Discharge Summary Hospital Course Date of Admission Jun 24, 2020 at 05:13 Date of Discharge Jun 27, 2020 at 18:57 Admitting Diagnosis Reason for Hospitalization: elective surgery HPI Barrie Lira is a 59 year old male who was admitted on Jun 24, 2020 at 05 :13 for post trauma symptomatic lumbar spine clinical instability. Patient was admitted for elective surgery. Consultations Dr. Guadarrama-cardiology/IM Dr. Coreas-pain specialist Procedures s/p 06/24/[address] Reynoso ( spine surgeon) 1. Anterior retroperitoneal approach, Dr. Dahl, vascular surgeon, please see separate report with Dr. Reynoso' assist approach right anterior lateral. 2. L5-S1 diskectomy with interbody correction deformity and interbody fusion. 3. Anterior internal plate fixation L5-S1. 4. Not integral interbody device. 5. Placement of interbody titanium device lordotic. 6. Placement of interbody osteopromotive material, autograft. 7. Intraoperative fluoroscopy interpreted by surgeons. 8. SSEP monitoring. s/p 06/24/[address] Dahl ( vascular surgeon, approach) Anterior retroperitoneal exposure of L5-S1 vertebral interspace, right retroperitoneal approach. Hospital Course status post surgery initially IV fluids s/p perioperative antibiotic and steroid neurovascular status closely monitored, remained stable incision with dressing clean , dry and intact pain management was addressed pain specialist followed; pain was controlled remained hemodynamically stable ambulated with PT fall precautions maintained; safe for ambulation DVT prophylaxis provided use of incentive spirometry was encouraged while in the bed slowly started on diet when bowel function returned tolerated diet , IV fluids discontinued GI prophylaxis provided antiemetics were on board as needed developed acute urinary retention, Vazquez catheter was inserted Flomax was resumed ( used at home) Vazquez was discontinued in 2 days and patient was able to void without difficulties, contineu Flomax at home home medications continued bowel regimen instituted patient was stable for discharge discharge instructions provided follow up with surgeon in the office as advsied FINAL DIAGNOSES Post trauma symptomatic lumbar spine clinical instability s/p ALIF L5-S1, plate fixation L5-S1 Postoperative urinary retention-resolved Asthma BPH Hyperlipidemia Discharge Medications Continued Medications: Albuterol Sulfate* (Albuterol Sulfate Hfa*) 8.5 Gm Hfa.aer.ad 2 PUFF INH Q6H PRN for Shortness of Breath, #1 INH (This prescription has been renewed) Fluticasone/Vilanterol (Breo Ellipta 100-25 Mcg INH) 1 Each Blst.w.dev 1 EACH IH PRN for Shortness of Breath, EACH (This prescription has been renewed) Oxycodone HCl (Oxycodone HCl) 15 Mg Tablet 15 MG ORAL Q8HR PRN for For Pain, #10 TAB (This prescription has been renewed) Discharge Condition Upon Discharge: stable Discharge Vital Signs Last Vital Signs Date Time Temp Pulse Resp B/P (MAP) Pulse Ox O2 Delivery O2 Flow Rate FiO2 06/27/20 12:00 99.3 73 16 126/67 (86) 96 06/27/20 09:00 Room Air 06/25/20 07:59 21 06/24/20 10:45 3 Discharge Disposition Patient was discharged to Home (01) Discharge Instructions Discharge Instructions Special Instructions I have been assigned to complete a D/C Summary on this account. I was not involved in the patient management Radha Shaffer NP Jun 28, 2020 13:04
== END 2020-06-27 18:57 | disposition home or self-care (01) | DRG 460 ==
LOC: SDSOVERFLO 06-24 05:13 → 3E 06-24 10:49
PROC: 0SG Lower Joints, Fusion (ICD-10-PCS; principal; 2020-06-24 07:00)
PROC: 0ST40ZZ Resection of Lumbosacral Disc, Open Approach (ICD-10-PCS; principal; 2020-06-24 07:00)
PROC: 0SG30A0 Fusion of Lumbosacral Joint with Interbody Fusion Device, Anterior Approach, Anterior Column, Open Approach (ICD-10-PCS; principal; 2020-06-24 07:00)
PROC: 4A11X4G Monitoring of Peripheral Nervous Electrical Activity, Intraoperative, External Approach (ICD-10-PCS; principal; 2020-06-24 07:00)
DX: M53.2X7 Spinal instabilities, lumbosacral region (principal); T14.90XS Injury, unspecified, sequela; V89.2XXS Person injured in unspecified motor-vehicle accident, traffic, sequela; E78.5 Hyperlipidemia, unspecified; J45.909 Unspecified asthma, uncomplicated; G89.18 Other acute postprocedural pain; E66.9 Obesity, unspecified; Z68.33 Body mass index [BMI] 33.0-33.9, adult; F32.9 Major depressive disorder, single episode, unspecified; H93.19 Tinnitus, unspecified ear; N40.1 Benign prostatic hyperplasia with lower urinary tract symptoms; R33.8 Other retention of urine
CPT/HCPCS: 36415; 72020; 76000; 80307; 86850; 86900; 86901; 87081; 94003; 94150; 94640; 94664; J2405; J2710; J2795; J7030; U0002